=== PATIENT | female | born 1980 | race Hispanic/Latino ===

== ENCOUNTER → 2019-12-21 | Outpatient (CLI) | payer OTHER ==
[~2019-12-21] MED LIST: IOPAMIDOL 370 MG/ML 200 ML INFUS..BTL INJ ONE; SODIUM CHLORIDE 0.9% 50ML 50 ML ONE
[2019-12-21 10:07] LABS: BLOOD UREA NITROGEN 9 mg/dL (7-26); BUN/CREATININE RATIO 13 (6-25); CREATININE, SERUM 0.69 mg/dL (0.57-1.11); EST GLOMERULAR FILTRATION RATE > 60 ML/MIN (60-)
--- NOTE | 2019-12-21 11:33 | Diagnostic Imaging Report ---
CT of the chest, PE protocol, with contrast. History: Chest pain. Comparison: None available. Technique: Multidetector thin collimation CT scanning of the chest was performed from the level of the apices to the upper abdomen during the pulmonary arterial phase, after intravenous administration of contrast. Coronal and sagittal reformats were obtained. RADIATION DOSE: Total DLP: 597.13 mGy*cm Dose modulation, iterative reconstruction, and/or weight based adjustment of the mA/kV was utilized to reduce the radiation dose to as low as reasonably achievable. FINDINGS: There is adequate opacification of the pulmonary arteries which distribute normally. The main pulmonary artery is normal in caliber measuring 2.4 cm in maximal diameter. There is no evidence of a filling defect to suggest pulmonary thromboembolism. The thyroid and remaining visualized structures within the base of the neck demonstrate no significant abnormalities. The thoracic aorta is normal course and caliber. The heart is not enlarged. No abnormal pericardial fluid is present. There is no abnormal axillary, mediastinal, or hilar lymph node enlargement. The trachea and proximal airways are patent. Examination of the lungs demonstrates no evidence for consolidation, pneumothorax, mass, suspicious nodule, or pleural effusion. Limited views of the upper abdomen otherwise demonstrate no significant abnormalities. The osseous structures demonstrate no evidence for acute fracture or destructive process. The extrathoracic soft tissues are unremarkable. IMPRESSION: No evidence for pulmonary thromboembolism or other acute intrathoracic process. Signed by: Dr. Raul Gonzalez MD on 12/21/2019 11:30 AM
== END ==
LOC: CT 09:02
PROVIDERS: ATTEND Internal Medicine Interventional Cardiology
DX: R07.9 Chest pain, unspecified (principal); R09.02 Hypoxemia; I26.99 Other pulmonary embolism without acute cor pulmonale
CPT/HCPCS: 36415; 71260; 82565; 84520; Q9967